=== PATIENT | female | born 1935 | race Caucasian/White ===

== ENCOUNTER 2016-05-09 23:32 | Emergency (ER) | payer MEDICARE, OTHER ==
[2016-05-10 00:37] LABS: BASOPHIL 0.3 % (0-2); EOSINOPHIL 0.6 % (0-7); HCT 39.2 % (37.0-47.0); HGB 12.8 g/dl (12.5-16.0); LYMPHOCYTE 11.7 % (15-48); MCH 27.3 pg (25.0-31.0); MCHC 32.7 g/dL (32.0-36.0); MCV 83.6 fL (78.0-100.0); MONOCYTE 10.2 % (0-12); MPV 9.1 fL (6.0-9.5); NEUTROPHIL 77.2 % (41-80); PLT 316 K/uL (150-400); RBC 4.69 M/uL (4.20-5.40); RDW 15.4 % (11.5-14.0); WBC 10.3 K/uL (4.0-10.5)
[2016-05-10 00:45] LABS: INR 1.03 (0.9-1.2); PROTHROMBIN TIME 13.1 SECONDS (11.7-14.0)
[2016-05-10 00:51] LABS: ALBUMIN 3.7 g/dL (3.4-4.8); BILIRUBIN - TOTAL 0.5 mg/dL (0.1-1.0); CREATININE 0.8 mg/dL (0.5-1.0); GLOBULIN (CALCULATION) 3.4 g/dL (2.2-4.2); POTASSIUM 3.9 mmol/L (3.5-5.1); TOTAL PROTEIN 7.1 g/dL (6.4-8.3)
[2016-05-10 00:54] LABS: CKMB 1.16 ng/mL (0.97-4.94); TROPONIN T < 0.010 ng/mL
[2016-05-10 01:44] LABS: BILIRUBIN NEGATIVE (NEGATIVE); BLOOD 2+ Ery/uL (NEGATIVE); CLARITY CLOUDY (CLEAR); COLOR YELLOW (YELLOW); GLUCOSE (U) NORMAL (NORMAL); KETONE (U) 1+ (SMALL) mg/dL (NEGATIVE); LEUKOCYTES NEGATIVE Leu/uL (NEGATIVE); NITRITE POSITIVE (NEGATIVE); PROTEIN 2+ mg/dL (NEGATIVE); SPECIFIC GRAVITY 1.025 (1.001-1.030)
[2016-05-10 01:47] LABS: BACTERIA 4+
[2016-05-10 05:45] LABS: CKMB 1.15 ng/mL (0.97-4.94); TROPONIN T < 0.010 ng/mL
== END 2016-05-10 09:00 | disposition home or self-care (01) ==
LOC: FER 23:32
PROVIDERS: Emergency Medicine Emergency Medical Services
DX: M54.2 Cervicalgia (principal); R09.02 Hypoxemia; E86.9 Volume depletion, unspecified; R82.90 Unspecified abnormal findings in urine; I45.10 Unspecified right bundle-branch block; I11.9 Hypertensive heart disease without heart failure; E11.9 Type 2 diabetes mellitus without complications; Z88.0 Allergy status to penicillin; Z79.84 Long term (current) use of oral hypoglycemic drugs; Z79.02 Long term (current) use of antithrombotics/antiplatelets; Z79.899 Other long term (current) drug therapy; Z95.5 Presence of coronary angioplasty implant and graft
CPT/HCPCS: 36415; 36600; 70450; 71010; 71275; 72125; 80053; 81001; 82550; 82553; 82803; 84484; 85025; 85379; 85610; 85651; 85730; 86140; 87077; 87088; 87186; 87450; 87804; 87899; 93005; J1100; J1170; J2405; Q9967

== ENCOUNTER 2021-06-27 15:16 | Emergency (ER) | payer MEDICARE ==
[2021-06-27 16:12] LABS: BASOPHIL 0.6 % (0-2); EOSINOPHIL 0.8 % (0-7); HCT 38.4 % (37.0-47.0); HGB 12.2 g/dl (12.5-16.0); LYMPHOCYTE 26.1 % (15-48); MCH 31.4 pg (25.0-31.0); MCHC 31.8 g/dL (32.0-36.0); MCV 98.7 fL (78.0-100.0); MPV 9.7 fL (6.0-9.5); NEUTROPHIL 64.3 % (41-80); NRBC 0; PLT 272 K/uL (150-400); RBC 3.89 M/uL (4.20-5.40); RDW 12.4 % (11.5-14.0)
[2021-06-27 16:22] LABS: INR 1.06 (0.9-1.2); PROTHROMBIN TIME 13.2 SECONDS (11.8-13.4); PTT 27.5 SECONDS (24.4-34.7)
[2021-06-27 16:33] LABS: LACTIC ACID 0.8 mmol/L (0.4-1.9)
[2021-06-27 16:43] LABS: BILIRUBIN - TOTAL 0.4 mg/dL (0.2-1.0); BUN/CREAT RATIO (CALC) 19.9 RATIO; CREATININE 1.56 mg/dL (0.51-0.95); GLOBULIN (CALCULATION) 3.5 g/dL; MAGNESIUM 2.2 mg/dL (1.8-2.4); POTASSIUM 5.2 mmol/L (3.5-5.1); TOTAL PROTEIN 6.5 g/dL (6.4-8.2)
[2021-06-27 18:47] LABS: BILIRUBIN NEGATIVE (NEGATIVE); BLOOD NEGATIVE Ery/uL (NEGATIVE); CLARITY CLEAR (CLEAR); COLOR YELLOW (YELLOW); GLUCOSE (U) NORMAL (NORMAL); LEUKOCYTES NEGATIVE Leu/uL (NEGATIVE); NITRITE POSITIVE (NEGATIVE); PROTEIN NEGATIVE (NEGATIVE); UROBILINOGEN 0.2 mg/dL (0.2-1.0)
[2021-06-27 19:18] LABS: AMORPHOUS URATES CRYSTALS LARGE; BACTERIA 1+; URINARY RBC RARE
== END 2021-06-27 22:18 | disposition other institution (70) ==
LOC: FER 15:16
PROVIDERS: Emergency Medicine
DX: R00.1 Bradycardia, unspecified (principal); I11.0 Hypertensive heart disease with heart failure; I50.9 Heart failure, unspecified; E11.9 Type 2 diabetes mellitus without complications; Z20.822 Contact with and (suspected) exposure to COVID-19; Z88.0 Allergy status to penicillin; Z28.310 Unvaccinated for COVID-19
CPT/HCPCS: 36415; 71045; 80053; 81001; 83605; 83735; 83880; 84484; 85025; 85610; 85730; 87076; 87088; 87186; 93005; J0461; U0002

== ENCOUNTER 2021-11-01 09:19 | Emergency (ER) | payer MEDICARE, OTHER ==
[2021-11-01 10:21] LABS: BASOPHIL 0.4 % (0-2); EOSINOPHIL 3.2 % (0-7); HCT 36.9 % (37.0-47.0); HGB 11.6 g/dl (12.5-16.0); LYMPHOCYTE 20.7 % (15-48); MCH 30.1 pg (25.0-31.0); MCHC 31.4 g/dL (32.0-36.0); MCV 95.8 fL (78.0-100.0); MONOCYTE 10.9 % (0-12); MPV 9.7 fL (6.0-9.5); NEUTROPHIL 64.5 % (41-80); NRBC 0; PLT 248 K/uL (150-400); RBC 3.85 M/uL (4.20-5.40); RDW 13.8 % (11.5-14.0); WBC 9.2 K/uL (4.0-10.5)
[2021-11-01 10:30] LABS: BILIRUBIN NEGATIVE (NEGATIVE); BLOOD NEGATIVE Ery/uL (NEGATIVE); CLARITY CLEAR (CLEAR); COLOR YELLOW (YELLOW); GLUCOSE (U) NORMAL (NORMAL); LEUKOCYTES TRACE Leu/uL (NEGATIVE); NITRITE NEGATIVE (NEGATIVE); PROTEIN NEGATIVE (NEGATIVE); SPECIFIC GRAVITY 1.025 (1.001-1.030); UROBILINOGEN 0.2 mg/dL (0.2-1.0); pH 5.5 (5.0-9.0)
[2021-11-01 10:41] LABS: BACTERIA 1+
[2021-11-01 10:41] LABS: ALBUMIN 3.2 g/dL (3.4-5.0); BILIRUBIN - TOTAL 0.4 mg/dL (0.2-1.0); CREATININE 1.12 mg/dL (0.51-0.95); GLOBULIN (CALCULATION) 3.5 g/dL; POTASSIUM 4.3 mmol/L (3.5-5.1); TOTAL PROTEIN 6.7 g/dL (6.4-8.2)
[2021-11-01] MEDS ORDERED: PREDNISONE 20MG20 MG PO (11:21)
== END 2021-11-01 12:28 | disposition home or self-care (01) ==
LOC: FER 09:19
PROVIDERS: Emergency Medicine
DX: M54.16 Radiculopathy, lumbar region (principal); I10 Essential (primary) hypertension; E11.9 Type 2 diabetes mellitus without complications; Z88.0 Allergy status to penicillin; Z28.310 Unvaccinated for COVID-19
CPT/HCPCS: 36415; 71045; 72131; 80053; 81001; 84484; 85025; 93005; J7512